=== PATIENT | female | born 1945 | race Two or more races ===

== ENCOUNTER 2019-01-29 09:58 | Outpatient (CLI) | payer OTHER ==
[~2019-01-29 09:58] MED LIST: CLONAZEPAM1 MG PO; DOCUSATE SODIU100 MG PO; PERCOCET 5/3251 TAB PO
== END 2019-01-29 10:08 | disposition home or self-care (01) ==
LOC: RAD 09:58
DX: I70.0 Atherosclerosis of aorta (principal)

== ENCOUNTER → 2022-12-06 | Outpatient (CLI) | payer OTHER | END | disposition home or self-care (01) | LOC: SONOGRAMA 15:52 | PROVIDERS: ATTEND Internal Medicine | DX: E04.2 Nontoxic multinodular goiter (principal) ==

== ENCOUNTER 2023-04-12 12:01 | Outpatient (CLI) | payer OTHER | END 2023-04-12 12:09 | disposition home or self-care (01) | LOC: RAD 12:01 | PROVIDERS: ATTEND Orthopaedic Surgery | DX: M25.572 Pain in left ankle and joints of left foot (principal) ==

== ENCOUNTER 2023-06-23 09:53 | Outpatient (CLI) | payer OTHER | END 2023-06-23 10:02 | disposition home or self-care (01) | LOC: RAD 09:53 | PROVIDERS: ATTEND Internal Medicine | DX: E03.8 Other specified hypothyroidism (principal); M25.541 Pain in joints of right hand ==

== ENCOUNTER 2023-06-23 11:17 | Outpatient (CLI) | payer OTHER | END 2023-06-23 11:18 | disposition home or self-care (01) | LOC: NUCLEAR 11:17 | PROVIDERS: ATTEND Orthopaedic Surgery | DX: M81.0 Age-related osteoporosis without current pathological fracture (principal) ==

== ENCOUNTER 2023-11-08 13:45 | Outpatient (CLI) | payer OTHER | END 2023-11-08 14:06 | disposition home or self-care (01) | LOC: TOM 13:45 | DX: M25.552 Pain in left hip (principal) ==